=== PATIENT | male | born 1980 | race Caucasian/White ===

== ENCOUNTER → 2018-07-20 | Outpatient (CLI) | payer OTHER ==
--- NOTE | 2018-07-20 16:57 | Diagnostic Imaging Report ---
SCROTAL ULTRASOUND HISTORY: Testicular pain TECHNIQUE: Sonographic evaluation of the scrotum. Color and pulsed wave Doppler ultrasound was used to assess testicular vasculature. COMPARISON: None available. DISCUSSION: RIGHT TESTIS: The right testis measures 4.2 x 1.9 x 3.3 cm. Normal echotexture, without a focal lesion identified. LEFT TESTIS: The left testis measures 3.8 x 2.2 x 3 cm. Normal echotexture, without a focal lesion identified. VASCULAR: There are symmetric, arterial wave forms detected in both testes. Left varicocele. EPIDIDYMIDES: Right: 1 x 1.1 x 1.5 cm. Unremarkable. Left: 1 x 0.5 x 1 cm. Unremarkable. SCROTUM: No hydrocele. IMPRESSION: 1. Left-sided varicocele. 2. Otherwise, unremarkable. Signed by: Dr. Yung Diaz D.O., M.M.M. on 07/20/2018 4:53 PM
== END ==
LOC: US 15:32
PROVIDERS: ATTEND Urology
DX: I86.1 Scrotal varices (principal); N50.819 Testicular pain, unspecified
CPT/HCPCS: 76870; 93976